=== PATIENT | male | born 1940 | race Caucasian/White ===

== ENCOUNTER 2017-08-03 18:37 | Inpatient (IN) ==
[2017-08-03] MEDS ORDERED: Acetaminophen 325 MG TABLET PO PRN (23:05)
[2017-08-03] MEDS ORDERED: Ondansetron 4 MG/2 ML VIAL IVP PRN (23:05)
[2017-08-03] MEDS ORDERED: Naloxone 0.4 MG/ML INJ IVP PRN (23:05)
[2017-08-03 23:37] LABS: INR 1.3
--- NOTE | 2017-08-03 23:47 | Event Note ---
Date of Encounter: 08/03/17 Time of Encounter: 23:00 I examined this patient and my medical decision-making was reviewed with the Resident Physician. I agree with the documented findings, disposition and treatment plan as described except to the extent set forth below. Patient is a 76-year-old male with past medical history of atrial fibrillation, COPD, bladder cancer, hyperlipidemia, hypertension and chronic back pain. He presents as a transfer from [facility] for altered mental status. Patient apparently had an episode of confusion earlier this afternoon, and was found by his in in the kitchen.in the ED patient was alert and oriented. At present patient is awake and alert. Not in any distress. Able to verbalize and follows verbal commands. Denies chest pain or shortness of breath or palpitations or headache or dizziness. He is awake and alert and able to answer questions. He is oriented to place and person but not to time. Patient does take Xarelto for A. fib.patient has no other complaints at this time. CT of the head is negative for any acute intracranial abnormality. Chest x-ray does not show any acute process. EKG shows A. fib with no other acute changes. Troponin is slightly elevated at 0.08, but patient does not have chest pain. At this time we will trend his troponin. Patient will also need MRI of brain and carotid Dopplers. Patient has been explained about his condition and plan of care. He understood and agreed. No family members at bedside. Heart rate 74, blood pressure 175/66, O2 sat 94% on room air. Heart S1-S2 positive no murmurs. Lungs bilateral good air entry no wheezes or crackles. Abdomen soft nontender no masses or guarding. Extremities all pulses, no edema. Neurological patient is awake and alert, follows commands, able to verbalize, no focal neurological deficits.
--- NOTE | 2017-08-04 03:23 | Internal Med History&Physical ---
Date of Encounter: 08/03/17 Time of Encounter: 23:30 Assessment and Plan (1) Altered mental status Current visit: No Status: Acute Acute encephalopathy - unclear etiology, patient has episodes of intermittent confusion - rule out CVA Continue Statin, Xarelto CT head - no acute intracranial abnormality Chest x-ray - no acute process Troponin - 0.08 BNP - 197 MRI brain - pending Carotid Doppler - pending Drug screen - pending Cardiac telemetry, labs in a.m., monitor closely Qualifiers: Altered mental status type: transient alteration of awareness Qualified Code(s): R40.4 - Transient alteration of awareness (2) Elevated troponin Current visit: Yes Status: Acute Elevated troponin possibly due to atrial fibrillation - rule out ACS EKG - atrial fibrillation with no acute ST-T changes Continue home dose of statin, patient is allergic to aspirin Cycle troponin, cardiac telemetry (3) Atrial fibrillation Current visit: Yes Status: Chronic Chronic atrial fibrillation, rate controlled Continue home dose of Digoxin and continue Xarelto for anticoagulation Qualifiers: Atrial fibrillation type: chronic Qualified Code(s): I48.2 - Chronic atrial fibrillation (4) Hypertension Current visit: No Status: Chronic Essential hypertension, uncontrolled, monitor Add metoprolol Qualifiers: Hypertension type: essential hypertension Qualified Code(s): I10 - Essential (primary) hypertension Internal Medicine - H&P: HPI Chief complaint: Altered mental status Admitted From: Emergency Dept Plans for Post Hospital Care: Home History of present illness: Mr. Lofton is a 76 year old male with past medical history of atrial fibrillation, bladder cancer, hyperlipidemia, and hypertension who presents to the ER with chief complaint of altered mental status. Patient had a normal day for the most part, but was found by his in the kitchen. He tried makes coffee and was spilling coffee around. He appeared to be confused and disoriented. Emergency services came and reported that he appeared to be agitated. He also appeared to have slight weakness in the metal bumper of his left hand. Upon arrival to the hospital, patient said that he "felt fine". The patient was alert and oriented and answered questions appropriately. Patient denied having any acute visual changes or headache. He denied having any chest pain, palpitations, or shortness of breath. Patient denied having any recent fall or injury. He does not have any numbness or tingling. Patient does have a history of atrial fibrillation, for which she takes her also. Patient states that he did take his morning dose. Patient had another episode where he became disoriented with nurse. She did not know why he was in the emergency department. He quickly resolved. CT scan of the head was obtained, showing no acute intracranial abnormality. It did however, show chronic microvascular ischemic changes and global cerebral atrophy. Patient denies the use of tobacco or alcohol. Past Med Surg Social Fam HX - Past Medical History Medical history: atrial fibrillation, cancer, hyperlipidemia, hypertension, other Psychiatric history: no psych history - Past Surgical History Surgical History: cancer surgery - Social History Smoking Status: Former smoker Smokeless Tobacco Status: No Alcohol use: none Drug use: none Internal Medicine - H&P: Meds Albuterol Sulfate [Ventolin Hfa] 1 puff IH PRN PRN 08/03/17 [History] Digoxin 0.125 mg PO DAILY 08/03/17 [History] Fluticasone/Salmeterol [Advair Hfa 45-21 Mcg Inhaler] 12 gm IH PRN PRN 08/03/17 [History] Loratadine [Claritin] 10 mg PO DAILY 08/03/17 [History] Lovastatin [Altoprev] 40 mg PO DAILY 08/03/17 [History] Montelukast [Singulair] 10 mg PO DAILY 08/03/17 [History] Rivaroxaban [Xarelto] 20 mg PO DAILY 08/03/17 [History] Tramadol HCl [Ultram] 50 mg PO TID 08/03/17 [History] 3 Allergy/AdvReac Type Severity Reaction Status Date / Time aspirin [ASA] Allergy Rash Verified 08/03/17 16:27 All Systems PM: A 10-system review of systems was performed and is negative for pertinent findings except as documented above in the HPI. - Constitutional Constitutional: no fatigue, no fever(s), no weakness - Cardiovascular Cardiovascular ROS IM: no chest pain, no diaphoresis, no dyspnea, no dyspnea on exertion, no lightheadedness, no orthopnea, no palpitations, no syncope - Respiratory Respiratory: no cough, no dyspnea, no hemoptysis, no dyspnea on exertion, no wheezing, no chest congestion - Gastrointestinal Gastrointestinal: no abdominal pain, no cramping, no diarrhea, no hematemesis, no nausea, no vomiting - Musculoskeletal Musculoskeletal ROS IM: no arthralgias - Neurological Neurological ROS: no confusion, no convulsions, no dizziness, no numbness, no tingling - Constitutional Vitals: Temp Pulse Resp BP Pulse Ox 98.2 F 74 16 175/66 94 08/03/17 21:23 08/03/17 21:23 08/03/17 21:23 08/03/17 21:23 08/03/17 21:23 General appearance: Present: cooperative, A&O X 2, pleasant, no acute distress, answers questions appropriately Exam: Intermittent confusion - Head Head exam: Present: atraumatic - Eye Eye exam: Present: EOMI - ENT ENT exam: Present: mucous membranes moist - Respiratory Respiratory exam: Present: CTAB. Absent: chest wall tenderness, rales, rhonchi , wheezes, tachypnea - Cardiovascular Cardiovascular exam: Present: RRR, +S1, +S2 - GI/Abdominal GI/Abdominal exam: Present: soft. Absent: distended, firm, guarding, tenderness - Extremities Exam Extremities exam: Present: radial pulses palpable and symmetrical. Absent: calf tenderness, cyanotic, pedal edema - Neurological Exam Neurological exam: Present: alert (Oriented to place and person but not to time) , no focal deficits. Absent: facial droop, speech deficit Additional comments: Follows verbal commands and able to verbalize well. No obvious focal neurological deficits Internal Med - H&P Results - Labs Labs: Cardiac Enzymes 08/03/17 Range/Units 23:25 Troponin I 0.08 H* (0-0.03) ng/mL
[2017-08-04 03:54] LABS: Bilirubin,Urine Negative (Negative); Blood,Urine Negative (Negative); Clarity,Urine Clear (Clear); Color,Urine Yellow (Yellow); Glucose,Urine (UA) Normal (Normal); Ketones,Urine Negative (Negative); Leukocyte Esterase,Urine Negative (Negative); Nitrite,Urine Negative (Negative); PH,Urine 6.5 pH Units (5.0-8.0); Protein,Urine 100 mg/dL (Neg-Trace); Specific Gravity,Urine 1.026 (1.010-1.025); Urobilinogen,Urine Normal (Normal)
[2017-08-04 03:56] LABS: Bacteria,Urine None Seen per hpf (None-Few); Hyaline Casts,Urine None Seen per lpf (None-Few); Squamous Epithelial Cell,Urine Moderate per lpf (None-Few); WBC,Urine 0-3 per hpf (0-3)
[2017-08-04 04:00] LABS: Amphetamine Screen,Urine Negative ng/mL (Cutoff=1000); Barbiturate Screen,Urine Negative ng/mL (Cutoff=200); Benzodiazepines Screen,Urine Negative ng/mL (Cutoff=200); Cannabinoid Screen,Urine Negative ng/mL (Cutoff = 50); Cocaine Screen,Urine Negative ng/mL (Cutoff= 300); Opiate Screen,Urine Negative ng/mL (Cutoff=300); Phencyclidine Screen,Urine Negative ng/mL (Cutoff=25)
[2017-08-04] MEDS: Famotidine 20 MG/2 ML VIAL IVP SCH ×2 (05:11→17:05)
[2017-08-04 06:07] LABS: Basophils # 0.1 K/mcL (0.0-0.2); Basophils % 0.5 %; Eosinophils # 0.2 K/mcL (0.0-0.6); Eosinophils % 1.4 %; Hematocrit 42.7 % (37.5-50.1); Hemoglobin 13.4 g/dL (12.9-16.9); Immature Granulocytes % 0.8 % (0-4); Immature Platelets 6.3 % (1.1-6.1); Lymphocytes % 18.6 %; Mean Corpuscular HGB Conc 31.4 g/dL (31.6-35.5); Mean Corpuscular Hemoglobin 29.5 pg (28.0-33.3); Mean Corpuscular Volume 93.8 fL (83.0-100.0); Mean Platelet Volume 11.1 fL (9.4-12.4); Monocytes % 9.3 %; Neutrophils # 7.3 K/mcL (1.6-8.9); Platelet Count 218 K/mcL (140-400); Red Blood Count 4.55 M/mcL (4.19-5.50); Red Cell Distribution Width 14.1 % (11.5-14.5); Segmented Neutrophils % 69.4 %
[2017-08-04 06:19] LABS: BUN/Creatinine Ratio 14 (6-26); Blood Urea Nitrogen 13 mg/dL (8-26); Calcium 9.1 mg/dL (8.6-10.8); Carbon Dioxide 27 mEq/L (19-29); Chloride 105 mEq/L (98-109); Chol/HDL Ratio 4.5 (0-4.9); Cholesterol 149 mg/dL (< 200); Glucose 101 mg/dL (70-99); HDL Cholesterol 33 mg/dL (40-59); LDL Cholesterol,Calculated 96 mg/dL (0-99); Osmolality,Calculated 290 (280-300); Potassium 3.9 mEq/L (3.5-4.5); Sodium 140 mEq/L (136-145); Triglycerides 99 mg/dL (< 150); eGFR For African Americans > 60 (> 60); eGFR For Non-African Americans > 60 (> 60)
[2017-08-04] MEDS ORDERED: *HR* Labetalol 20 MG/4 ML SYRINGE IVP ONE (06:30)
--- NOTE | 2017-08-04 08:28 | Event Note ---
<LilliamArthur Oneillrileyolman - Last Filed: 08/04/17 09:13> Date of Encounter: 08/04/17 Time of Encounter: 08:23 Patient seen this morning. Nurse reports at 6Am patient was answering questions and following commands and had acute change in mental status. Currently follows some commands. Otherwise, seems to have fluent aphasia, saying random unrelated comments to questions. MRI stat ordered. GCS 15. Currently etiology unclear of why patient is encephalopathic. Patient has hx of afib on xarelto. Heart: irregularly irregular Lungs: CTAB Abdomen: Soft, nontender, nondistended positive bowel sounds Neuro:alert but not oriented to self, place, time, situation. Patient able to move all extremities spontaneously. Follows some verbal commands stated above. Reflexes 2 out of 4. Extremities: Without edema. Plan: acute encephalopathy awaiting echocardiogram, carotid doppler and MRI. Started on asa, statin, thiamine. elevated troponin: troponin on upward trended. patient unable to answer if he has chest pain. EKG shows afib with no evidence of st-t wave changes. continue to monitor. continue tele afib: rate in 60s. on digoxin. will check dig level. on xarelto. continue aspirin, statin. <Garrison Flores - Last Filed: 08/04/17 18:39> Date of Encounter: 08/04/17 Agree with above plan. See progress note of this date.
[2017-08-04] MEDS ORDERED: Haloperidol Lactate 5 MG/ML VIAL IVP ONE ×2 (08:29→09:19)
[2017-08-04] MEDS ORDERED: Haloperidol Lactate 5 MG/ML VIAL ONE ×2 (08:31→08:32)
[2017-08-04] MEDS ORDERED: *HR* LORazepam 2 MG/ML VIAL IVP ONE ×2 (08:44→09:33)
[2017-08-04] MEDS ORDERED: *HR* LORazepam 2 MG/ML VIAL ONE (08:47)
[2017-08-04] MEDS: Budesonide/Formoterol 80/4.5 MDI IH SCH ×2 (09:21→22:48)
--- NOTE | 2017-08-04 13:17 | Neurology - Consult Note ---
Date of Encounter: 08/04/17 Time of Encounter: 13:11 Assessment and Plan (1) CVA (cerebral vascular accident) Current Visit: Yes Status: Acute 76 year old with known history of atrial fibrillation on Xarelto who developed acute changes in mental status, with MRI of brain showing acute punctate infarcts with a pattern consistent with proximal source of embolic stroke. patient currently sedated and agitated due to stroke and medical effects. But no focal weakness seen Await stroke work up including echocardiography, carotid artery duplex study. in terms of stroke management, he is already on Xarelto, first thing would be to confirm that he has been compliant with therapy. If he has not been compliant with Xarelto therapy then would suggest that he simply continue on Xarelto. If he has been compliant with Xarelto, then would suggest to add on aspirin 81mg daily, or as an alternative, to switch him from xarelto to a different anticoagulation or even coumadin with permission from cardiology. please continue medical and supportive care. Qualifiers: CVA mechanism: embolism Precerebral and cerebral artery: unspecified cerebral artery Qualified Code(s): I63.40 - Cerebral infarction due to embolism of unspecified cerebral artery History of Present Illness Chief complaint: confusion HPI: Mr. Lofton is a 76 year old male with PMH significant for atrial fibrillation on Xarelto, HTN, chronic back pain , asthma, obesity who developed acute changes in mental status. Patient was agitated and confused earlier this morning and was given Ativan and Haldol. Patient is currently sedated and unable to provide HPI. Per medical records, patient was found by his that he was confused in the kitchen. MRI of brain showed: 1. There are several punctate areas of restricted diffusion noted in bilateral cerebral hemispheres as well as bilateral cerebellar hemispheres which are concerning for acute embolic infarcts. Given the multivessel distribution, this likely comes from a proximal source (heart, aorta, etc). 2. Cerebral and cerebellar parenchymal volume loss with moderate chronic microvascular white matter ischemic disease noted both supra and infratentorially. Patient has history of atrial fibrillation and supposed to be taking xarelto. Unsure if the patient has been compliant with therapy Past Med Surg Social Fam HX - Past Medical History Medical history: atrial fibrillation, cancer, hyperlipidemia, hypertension, other Psychiatric history: no psych history - Past Surgical History Surgical History: cancer surgery - Social History Smoking Status: Former smoker Smokeless Tobacco Status: No Alcohol use: none Drug use: none Medications and Allergies Albuterol Sulfate [Ventolin Hfa] 1 puff IH PRN PRN 08/03/17 [History] Digoxin 0.125 mg PO DAILY 08/03/17 [History] Fluticasone/Salmeterol [Advair Hfa 45-21 Mcg Inhaler] 12 gm IH PRN PRN 08/03/17 [History] Loratadine [Claritin] 10 mg PO DAILY 08/03/17 [History] Lovastatin [Altoprev] 40 mg PO DAILY 08/03/17 [History] Montelukast [Singulair] 10 mg PO DAILY 08/03/17 [History] Rivaroxaban [Xarelto] 20 mg PO DAILY 08/03/17 [History] Tramadol HCl [Ultram] 50 mg PO TID 08/03/17 [History] 3 Allergy/AdvReac Type Severity Reaction Status Date / Time aspirin [ASA] Allergy Rash Verified 08/03/17 16:27 All Systems: A 10-system review of systems was performed and is negative for pertinent findings except as documented above in the HPI. Physical Examination - Vital Signs Vital Signs: Initial Vital Signs Temp Pulse Resp BP Pulse Ox 98.2 F 74 16 175/66 94 08/03/17 21:23 08/03/17 21:23 08/03/17 21:23 08/03/17 21:23 08/03/17 21:23 - Constitutional General appearance: uncomfortable - Neurologic Sensorimotor examination: other (unable to assess due to sedation) Detailed motor examination: grossly full strength in all extremities (Patient moves all limbs without gross weakness) Detailed sensory examination: other (Unable to assess) Posture: other (None ) Reflex and gait examination: other (Unable to assess due to sedation) Reflexes: Biceps: 1+, Triceps: 1+, Brachioradialis: 1+, Patella: 1+, Achilles: 1 + Mental Status Examination: lethargic (Patient moans and trie to get up. Eyes closed and does not follow commands. ) Cranial nerve examination: PERRL, EOMI (Unable to assess due to sedation), corneal reflexes brisk symmetrically, mastication intact, no facial asymmetry is present Results - Laboratory Findings CBC and BMP: 08/04/17 05:29 08/04/17 05:29 Abnormal lab findings: Abnormal lab results MCHC 31.4 g/dL (31.6-35.5) L 08/04/17 05:29 Immature Plt Fraction 6.3 % (1.1-6.1) H 08/04/17 05:29 PT 14.0 Seconds (9.4-12.1) H 08/03/17 23:25 Glucose 101 mg/dL (70-99) H 08/04/17 05:29 Troponin I 0.21 ng/mL (0-0.03) H* 08/04/17 10:43 B-Natriuretic Peptide 197 pg/mL (0-100) H 08/03/17 23:25 HDL Cholesterol 33 mg/dL (40-59) L 08/04/17 05:29 Ur Specific [place] 1.026 (1.010-1.025) H 08/04/17 02:04 Urine Protein 100 mg/dL (Neg-Trace) H 08/04/17 02:04 Urine Microscopic RBC 5-15 per hpf (0-3) H 08/04/17 02:04 Ur Squamous Epith Cells Moderate per lpf (None-Few) H 08/04/17 02:04 Digoxin 0.5 ng/mL (0.8-2.0) L 08/04/17 10:43 Consult Discharge Plan - Plan Referrals: Jennifer Diaz MD [Primary Care Provider] -
[2017-08-04] MEDS ORDERED: Acyclovir 750 MG in D5% in Water 250 ML IVPB SCH (14:06)
[2017-08-04] MEDS ORDERED: *HR* LORazepam 2 MG/ML VIAL IVP STA (14:06)
[2017-08-04] MEDS ORDERED: Acetaminophen 325 MG RECTAL SUPP RC PRN (14:06)
--- NOTE | 2017-08-04 14:09 | Event Note ---
<Arthur Vyas - Last Filed: 08/04/17 14:31> Date of Encounter: 08/04/17 Time of Encounter: 14:07 After talking to , patient may not have been compliant with xeralto. 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 He was complaining of neck pain. After he was given this noticed patient to be confused. Patients temp 101.5, BP 200/ 100, HR 120. NO nuchal rigidity identified. high suspicion of acute encephalopathy 2nd to meningitis. MRI does not show signs of encephalitis. WIll start patient on acyclovir Difficult to do lumbar puncture since patient is agitated, moving. Will d/c xeralto and start heparin incase we can get a LP later on. <Garrison Flores - Last Filed: 08/04/17 18:38> Date of Encounter: 08/04/17 Agree with plan as above. See progress note of this date.
[2017-08-04] MEDS ORDERED: *HR* Heparin 5,000 UNIT/ML VIAL IVP PRN ×2 (14:11)
[2017-08-04] MEDS ORDERED: *HR* Heparin 5,000 UNIT/ML VIAL IVP ONE (14:11)
[2017-08-04 14:20] LABS: Hematocrit 42.5 % (37.5-50.1); Hemoglobin 13.4 g/dL (12.9-16.9); Mean Corpuscular HGB Conc 31.5 g/dL (31.6-35.5); Mean Corpuscular Hemoglobin 29.6 pg (28.0-33.3); Mean Corpuscular Volume 93.8 fL (83.0-100.0); Mean Platelet Volume 11.7 fL (9.4-12.4); Platelet Count 228 K/mcL (140-400); Red Blood Count 4.53 M/mcL (4.19-5.50); Red Cell Distribution Width 14.1 % (11.5-14.5)
[2017-08-04 14:27] LABS: INR 1.2; Prothrombin Time 13.1 Seconds (9.4-12.1)
[2017-08-04 14:30] LABS: Activated Partial Thrombo Time 24.1 Seconds (26.0-36.0)
[2017-08-04] MEDS: Thiamine (B-1) 100 MG TABLET PO SCH (14:39)
[2017-08-04] MEDS: Acyclovir 750 MG in D5% in Water 250 ML IVPB SCH (15:00)
[2017-08-04] MEDS: Heparin 25,000 UNIT/500 ML D5W 25,000 UNIT/500 ML MLS IVC SCH (15:17)
[2017-08-04] MEDS ORDERED: *HR* Rivaroxaban 10 MG TABLET PO SCH (17:00)
[2017-08-04] MEDS: Levofloxacin 750 MG/150 ML 750 MG/150 ML BAG IVPB SCH (17:04)
[2017-08-04] MEDS: methylPREDNISolone 125 MG/2 ML VIAL IVP SCH ×2 (17:04→23:50)
[2017-08-04] MEDS ORDERED: Ipratropium/Albuterol Neb 3 ML IH PRN (17:57)
--- NOTE | 2017-08-04 18:26 | Internal Med Progress Note ---
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 On Plavix. (2) Cerebrovascular accident (CVA) due to bilateral embolism of middle cerebral arteries Current Visit: Yes Status: Acute Assessment and plan: See above (3) Acute metabolic encephalopathy Current Visit: Yes Status: Acute Assessment and plan: Most likely due to combination of fever/infection and cvas. PRN meds. Supportive care. (4) Atrial fibrillation Current Visit: Yes Status: Chronic Assessment and plan: Continue rate control meds. Qualifiers: Atrial fibrillation type: chronic Qualified Code(s): I48.2 - Chronic atrial fibrillation (5) Hypertension Current Visit: No Status: Chronic Assessment and plan: Controlled at this time. Qualifiers: Hypertension type: essential hypertension Qualified Code(s): I10 - Essential (primary) hypertension - Subjective Interval history: I examined this patient and my medical decision-making was reviewed with the Resident Physician on 08/04/17. I agree with the documented findings, disposition and treatment plan as described except to the extent set forth below. Mr Lofton has been admitted for acute encephalopathy. He has had multiple issues today and has been found to have multiple small strokes. He remains high risk due to potential for worsening neuro status. Mr Quintero started today with significant agitation and aggressiveness. He required multiple medications to calm. MRI done shows multiple bilateral CVAs. at bedside and says she reminds him to take Xarelto but does not watch him. Also stated this started shortly after he came in from [facility] yesterday. Later in afternoon he was agitated again and noted to have temp of 101.5. Lactate normal and WBC normal. Heart rate was elevated but blood pressure not low. Chest was congested. He was started on abx and transferred to [facility]. Currently he is still restless and confused though he will answer to his name. Son and daughter in law at bedside. - Constitutional Vitals: Temp Pulse Resp BP Pulse Ox 100.4 F H 104 17 144/98 94 08/04/17 15:48 08/04/17 15:48 08/04/17 15:48 08/04/17 15:48 08/04/17 15:48 General appearance: Present: A&O X 0 - Head Head exam: Present: normocephalic - Eye Eye exam: Present: conjuntiva pink - ENT ENT exam: Present: mucous membranes dry - Neck Neck exam general surgery: Absent: nuchal rigidity - Respiratory Respiratory exam: Present: prolonged expiratory phase, wheezes - Cardiovascular Cardiovascular exam: Present: irregular rhythm, tachycardia - GI/Abdominal GI/Abdominal exam: Present: soft. Absent: tenderness - Extremities Exam Extremities exam: Present: warm. Absent: tenderness - Neurological Exam Neurological exam: Present: alert, altered Internal Medicine: Result - Labs CBC & Chem 7: 08/04/17 10:43 08/04/17 05:29 Labs: Short CBC 08/04/17 08/04/17 Range/Units 05:29 10:43 WBC 10.5 10.7 (4.3-11.1) K/mcL Hgb 13.4 13.4 (12.9-16.9) g/dL Hct 42.7 42.5 (37.5-50.1) % Plt Count 218 228 (140-400) K/mcL Neutrophils # 7.3 (1.6-8.9) K/mcL BMP 08/04/17 05:29 Sodium 140 Potassium 3.9 Chloride 105 Carbon Dioxide 27 BUN 13 Creatinine 0.94 Glucose 101 H Calcium 9.1 Cardiac Enzymes 08/03/17 08/04/17 08/04/17 Range/Units 23:25 05:29 10:43 Troponin I 0.08 H* 0.12 H* 0.21 H* (0-0.03) ng/mL Urine 08/04/17 Range/Units 02:04 Urine Color Yellow (Yellow) Urine Clarity Clear (Clear) Urine pH 6.5 (5.0-8.0) pH Units Ur Specific [place] 1.026 H (1.010-1.025) Urine Protein 100 H (Neg-Trace) mg/dL Urine Glucose (UA) Normal (Normal) mg/dL - ABG Interpretation ABG results: PT/INR, D-dimer PT 13.1 Seconds (9.4-12.1) H 08/04/17 10:43 - Impressions Impressions Brain MRI 08/04/17 07:08 IMPRESSION: 1. There are several punctate areas of restricted diffusion noted in bilateral cerebral hemispheres as well as bilateral cerebellar hemispheres which are concerning for acute embolic infarcts. Given the multivessel distribution, this likely comes from a proximal source (heart, aorta, etc). 2. Cerebral and cerebellar parenchymal volume loss with moderate chronic microvascular white matter ischemic disease noted both supra and infratentorially. D/ / 08/04/2017 10:34:37 Melecio Aponte MD / Olga Patton Interpreting Provider: Melecio Aponte MD Chest X-Ray 08/04/17 14:20 IMPRESSION: 1. Cardiomegaly with increased pulmonary vascular congestion. D/ / Melecio Aponte MD / Melecio Aponte MD Interpreting Provider: Melecio Aponte MD Consult Discharge Plan - Plan Referrals: Jennifer Diaz MD [Primary Care Provider] -
[2017-08-04] MEDS: *HR* LORazepam 2 MG/ML VIAL IVP PRN ×2 (18:43→23:50)
[2017-08-04] MEDS: *HR* Metoprolol 5 MG/5 ML VIAL IVP PRN (18:48)
--- NOTE | 2017-08-04 19:20 | Electrocardiograph Report ---
[place] [id number] Test Date: 2017-08-04 Pat Name: Keenan Lofton Department: 113 Room: [facility] Gender: M [employer]: ROSA ISELA : 1940 Requested By: Josué Solares Order Number: [id number] Reading MD: Vincent Morgan MD Measurements Intervals [place] Rate: 73 P: CT: 0 QRS: 30 QRSD: 69 T: -36 QT: 366 QTc: 392 Interpretive Statements ATRIAL FIBRILLATION Electronically Signed On 08-04-2017 19:18:59 EDT by Vincent Morgan MD
[2017-08-05] MEDS: Acyclovir 750 MG in D5% in Water 250 ML IVPB SCH ×2 (00:18→06:18)
[2017-08-05] MEDS: *HR* Morphine 2 MG/ML SYRINGE IVP PRN (01:34)
[2017-08-05 04:42] LABS: Bilirubin,Urine Negative (Negative); Blood,Urine Trace (Negative); Clarity,Urine Clear (Clear); Color,Urine Yellow (Yellow); Glucose,Urine (UA) Normal (Normal); Ketones,Urine Negative (Negative); Leukocyte Esterase,Urine Negative (Negative); Nitrite,Urine Negative (Negative); PH,Urine 6.5 pH Units (5.0-8.0); Protein,Urine 100 mg/dL (Neg-Trace); Specific Gravity,Urine 1.019 (1.010-1.025); Urobilinogen,Urine Normal (Normal)
[2017-08-05 04:45] LABS: Bacteria,Urine None Seen per hpf (None-Few); Hyaline Casts,Urine None Seen per lpf (None-Few); Squamous Epithelial Cell,Urine Few per lpf (None-Few); WBC,Urine 0-3 per hpf (0-3)
[2017-08-05] MEDS: Famotidine 20 MG/2 ML VIAL IVP SCH ×2 (06:18→18:38)
[2017-08-05] MEDS: *HR* Metoprolol 5 MG/5 ML VIAL IVP PRN (08:18)
[2017-08-05] MEDS: Levofloxacin 750 MG/150 ML 750 MG/150 ML BAG IVPB SCH (08:19)
[2017-08-05] MEDS: methylPREDNISolone 125 MG/2 ML VIAL IVP SCH (08:19)
[2017-08-05] MEDS: Thiamine (B-1) 100 MG TABLET PO SCH (08:28)
[2017-08-05] MEDS: Heparin 25,000 UNIT/500 ML D5W 25,000 UNIT/500 ML MLS IVC SCH (09:40)
--- NOTE | 2017-08-05 10:05 | Neurology Progress Note ---
<Deepak Squires - Last Filed: 08/05/17 10:31> Date of Encounter: 08/05/17 Time of Encounter: 09:00 Assessment and Plan (1) CVA (cerebral vascular accident) Current Visit: Yes Status: Acute 76 year old with known history of atrial fibrillation on Xarelto who developed acute changes in mental status, with MRI of brain showing acute punctate infarcts with a pattern consistent with proximal source of embolic stroke. patient currently sedated and agitated due to stroke and medical effects. Very slight left leg weakness observed. Waiting for results of echocardiogram, initial read on chronic Dopplers shows nonstenotic plaque with regular flow velocity. Patient reportedly developed fevers overnight of 100.4 and was started on Levaquin and acyclovir. Waiting for final read on chest CT by primary team, Await stroke work up including echocardiography, carotid artery duplex study Patient reports being noncompliant with home Xarelto, though patient not fully cognizant currently Recommend continuing Xarelto and consider adding 81 mg aspirin if patient reports he has been taking Xarelto Consider alternative anticoagulation per cardiology if needed Qualifiers: CVA mechanism: embolism Precerebral and cerebral artery: unspecified cerebral artery Qualified Code(s): I63.40 - Cerebral infarction due to embolism of unspecified cerebral artery Subjective Principal diagnosis: embolic stroke Interval history: Patient not agitated this morning, he is relatively cooperative but seems to have difficulty understanding commands. He is alert and oriented 2 is unable to identify the time or time of year. He denies having any symptoms currently. He does report that he has not been taking his Xarelto regularly, but is difficult to ascertain whether he understands as questioned. Objective - Constitutional Vitals: Temp Pulse Resp BP Pulse Ox 97.5 F L 95 16 142/97 98 08/05/17 07:03 08/05/17 07:03 08/05/17 07:03 08/05/17 07:03 08/05/17 08:00 General appearance: Present: A&O X 2, pleasant - Head Head exam: Present: atraumatic, normocephalic - Expanded Head Exam Head exam expanded: Absent: Rodriguez's sign, laceration, raccoon eyes - Eye Eye exam: Present: EOMI, PERRL, conjuntiva pink, sclera anicteric - Extremities Exam Extremities exam: Present: radial pulses palpable and symmetrical. Absent: calf tenderness, pedal edema, tenderness - Neurological Exam Motor Examination: Present: other (Slightly decreased strength in the left lower extremity, 4/5) Motor examination - right side: 5/5: deltoids, biceps, triceps, biotechnician, hip flexors, tibialis Anterior, quadriceps, plantarflexion Motor examination - left side: 4/5: hip flexors, biotechnician, quadriceps, tibialis Anterior, plantarflexion, 5/5: deltoids, biceps, triceps Sensation intact: Present: other (Decreased sensation to light touch in right upper extremity) Reflex and gait examination: intact (Unable to assess gait) Reflexes: Biceps: 2+, Triceps: 2+, Brachioradialis: 2+, Patella: 2+, Achilles: 2 + Mental Status Examination: Present: awake, alert, oriented to person, oriented to place. Absent: follows commands appropriately, answers questions appropriately Cranial nerve examination: Present: PERRL, EOMI (Unable to assess due to sedation), corneal reflexes brisk symmetrically, no facial asymmetry is present , no dysarthria, hearing is intact symmetrically, flexes SCM and trapezius muscles symmetrically with full power, tongue protrudes midline Cerebellar examination: Present: performs finger to nose and heel to meyers symmetrically without ataxia Results - Laboratory Findings CBC and BMP: 08/04/17 10:43 08/04/17 05:29 Abnormal lab findings: Abnormal lab results MCHC 31.5 g/dL (31.6-35.5) L 08/04/17 10:43 Immature Plt Fraction 6.3 % (1.1-6.1) H 08/04/17 05:29 PT 13.1 Seconds (9.4-12.1) H 08/04/17 10:43 APTT 62.3 Seconds (26.0-36.0) H 08/05/17 03:02 Glucose 101 mg/dL (70-99) H 08/04/17 05:29 Troponin I 0.21 ng/mL (0-0.03) H* 08/04/17 10:43 B-Natriuretic Peptide 197 pg/mL (0-100) H 08/03/17 23:25 HDL Cholesterol 33 mg/dL (40-59) L 08/04/17 05:29 Urine Protein 100 mg/dL (Neg-Trace) H 08/05/17 04:24 Urine Blood Trace (Negative) H 08/05/17 04:24 Urine Microscopic RBC 5-15 per hpf (0-3) H 08/05/17 04:24 Digoxin 0.5 ng/mL (0.8-2.0) L 08/04/17 10:43 Consult Discharge Plan - Plan Referrals: Jennifer Diaz MD [Primary Care Provider] - <Abimael Alvarez - Last Filed: 08/05/17 12:29> Date of Encounter: 08/05/17 Time of Encounter: 12:23 Assessment and Plan (1) CVA (cerebral vascular accident) Current Visit: Yes Status: Acute I saw and examined the patient in the presence of Dr. Deepak Squires and i agree with his history taking, physical examination, assessment and plan. Patient may not be totally compliant with Xarelto at home due to his baseline dementia. Will recommend continuing xarelto as prescribed. Continue medical and supportive care. Qualifiers: CVA mechanism: embolism Precerebral and cerebral artery: unspecified cerebral artery Qualified Code(s): I63.40 - Cerebral infarction due to embolism of unspecified cerebral artery (2) Altered mental status Current Visit: No Status: Acute Apparently the patient is doing much better today and he is awake and mostly oriented now although mild disorientation still present earlier today. He reports no significant headaches throughout the course of the disease. MRI of brain showed few punctate embolic infarct but other than that there is no evidence suggesting [employer] infection or inflammation therefore with regarding the isolated fever it is unlikely [employer] in etiology therefore does not believe an LP is necessary and antiviral therapy is not needed. Agree with continuing antibiotic therapy due to the X-ray findings. Qualifiers: Altered mental status type: transient alteration of awareness Qualified Code(s): R40.4 - Transient alteration of awareness Objective - Constitutional Vitals: Temp Pulse Resp BP Pulse Ox 97.6 F 99 16 150/98 98 08/05/17 11:13 08/05/17 11:13 08/05/17 11:13 08/05/17 11:13 08/05/17 11:13 Results - Laboratory Findings CBC and BMP: 08/04/17 10:43 08/04/17 05:29 Abnormal lab findings: Abnormal lab results MCHC 31.5 g/dL (31.6-35.5) L 08/04/17 10:43 Immature Plt Fraction 6.3 % (1.1-6.1) H 08/04/17 05:29 PT 13.1 Seconds (9.4-12.1) H 08/04/17 10:43 APTT 62.3 Seconds (26.0-36.0) H 08/05/17 03:02 Glucose 101 mg/dL (70-99) H 08/04/17 05:29 Troponin I 0.21 ng/mL (0-0.03) H* 08/04/17 10:43 B-Natriuretic Peptide 197 pg/mL (0-100) H 08/03/17 23:25 HDL Cholesterol 33 mg/dL (40-59) L 08/04/17 05:29 Urine Protein 100 mg/dL (Neg-Trace) H 08/05/17 04:24 Urine Blood Trace (Negative) H 08/05/17 04:24 Urine Microscopic RBC 5-15 per hpf (0-3) H 08/05/17 04:24 Digoxin 0.5 ng/mL (0.8-2.0) L 08/04/17 10:43
[2017-08-05] MEDS: Budesonide/Formoterol 80/4.5 MDI IH SCH ×3 (11:11→20:12)
--- NOTE | 2017-08-05 12:48 | Carotid Imaging Report ---
Carotid Duplex Patient Name:Keenan Lofton Order Number:[id number] Procedure Date:08/04/2017 Date:1940Age:76 yrs Gender:Male Rt.BP:160 / 89 mmHgHeart Rate: Location:[facility] Room #: 43 Blocklayer:Dorene Storm, YARY, RVT Referring MD:Josué Solares MD Reading MD:Rambo Verde MD , FACS Primary Indications:Altered Mental Status Risk Factors Yes/No Hypertension Yes Hypercholesterolemia Yes Smoker Previous Yes Impressions: Findings: Bilateral carotid systems have nonstenotic plaque. Findings Carotid Duplex: Right: The right proximal common carotid artery has a PSV of 79 cm/s and a EDV of 1 cm/s. The right mid common carotid artery has a PSV of 72 cm/s and a EDV of 11 cm/s. The right distal common carotid artery has a PSV of 81 cm/s and a EDV of 11 cm/s. The right bifurcation has a PSV of 71 cm/s and a EDV of 9 cm/s. The right proximal internal carotid artery has a PSV of 49 cm/s and a EDV of 14 cm/s. The right mid internal carotid artery has a PSV of 66 cm/s and a EDV of 14 cm/s. The right distal internal carotid artery has a PSV of 62 cm/s and a EDV of 15 cm/s. The right eca has a PSV of 164 cm/s. The right vertebral artery has a PSV of 32 cm/s and a EDV of 8 cm/s. Left: The left proximal common carotid artery has a PSV of 67 cm/s and a EDV of 8 cm/s. The left mid common carotid artery has a PSV of 76 cm/s and a EDV of 8 cm/s. The left distal common carotid artery has a PSV of 69 cm/s and a EDV of 12 cm/s. The left bifurcation has a PSV of 82 cm/s and a EDV of 8 cm/s. The left proximal internal carotid artery has a PSV of 80 cm/s and a EDV of 8 cm/s. The left mid internal carotid artery has a PSV of 112 cm/s and a EDV of 22 cm/s. The left distal internal carotid artery has a PSV of 80 cm/s and a EDV of 14 cm/s. The left eca has a PSV of 230 cm/s and a EDV of 19 cm/s. The left vertebral artery has a PSV of 60 cm/s and a EDV of 10 cm/s. Prior Study: No prior study available for comparison. Carotid Results Right PSV EDV Assessment Proximal CCA 79 1 Mid CCA 72 11 Non Stenotic Plaque Distal CCA 81 11 Non Stenotic Plaque Bifurcation 71 9 Non Stenotic Plaque Proximal ICA 49 14 Mid ICA 66 14 Distal ICA 62 15 ECA 164 0 Vertebral Artery 32 8 Antegrade Flow Left PSV EDV Assessment Proximal CCA 67 8 Mid CCA 76 8 Distal CCA 69 12 Bifurcation 82 8 Non Stenotic Plaque Proximal ICA 80 8 Non Stenotic Plaque Mid ICA 112 22 Distal ICA 80 14 ECA 230 19 Vertebral Artery 60 10 Antegrade Flow Ratio's Right ICA/CCA Ratio: 0.92 ICA/CCA Values: 66/72 Left ICA/CCA Ratio: 1.47 ICA/CCA Values: 112/76 Updated by Rambo Verde MD, FACS on 08/05/2017 12:40:50 PM Rambo Verde MD electronically signed on 08/05/2017 12:41:04 PM with status of Final
--- NOTE | 2017-08-05 14:46 | Internal Med Progress Note ---
<Arthur Vyas - Last Filed: 08/05/17 14:53> Date of Encounter: 08/05/17 Time of Encounter: 14:44 - Assessment and plan (1) Acute encephalopathy Current Visit: Yes Status: Acute Assessment and plan: 2nd to embolic stroke Initially patient was aggressive, agitated, alert but not oriented to self, place or time. History of noncompliance with xaralto will start patient on xarelto and plavix (allergic to aspirin) yesterday patient had fever with the symptoms of acute enchephalopathy: he was started on acyclovir. 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 Discontinue acyclovir. (2) CVA (cerebral vascular accident) Current Visit: Yes Status: Acute Assessment and plan: MRI shows muultiple areas of acute infarcts dilma from embolic stroke patient will be started on plavix as they cannot take aspirin. continue statin reassess mental status tomorrow. Qualifiers: CVA mechanism: embolism Precerebral and cerebral artery: unspecified cerebral artery Qualified Code(s): I63.40 - Cerebral infarction due to embolism of unspecified cerebral artery (3) Atrial fibrillation Current Visit: Yes Status: Chronic Assessment and plan: restart home metoprol and xarelto controlled. Qualifiers: Atrial fibrillation type: chronic Qualified Code(s): I48.2 - Chronic atrial fibrillation (4) Elevated troponin Current Visit: Yes Status: Acute Assessment and plan: 2nd to stroke EKG afib with no ischemic changes patient denies chest pain - Subjective Interval history: Patient alert to self, place. He is not aggressive or agitated. - Constitutional Vitals: Temp Pulse Resp BP Pulse Ox 97.6 F 99 16 150/98 98 08/05/17 11:13 08/05/17 11:13 08/05/17 11:13 08/05/17 11:13 08/05/17 11:13 General appearance: Present: A&O X 0, A&O X 2 - Respiratory Respiratory exam: Present: wheezes (Wheezing anterior left chest). Absent: accessory muscle use, rales, rhonchi - GI/Abdominal GI/Abdominal exam: Present: normal bowel sounds, soft, no peritoneal signs. Absent: distended, tenderness - Extremities Exam Extremities exam: Present: warm, radial pulses palpable and symmetrical. Absent : calf tenderness, cyanotic, pedal edema - Neurological Exam Neurological exam: Present: alert, CN II-XII intact, no focal deficits. Absent : oriented X3 (Oriented to self and place), pronater drift, facial droop, speech deficit Internal Medicine: Result - Labs CBC & Chem 7: 08/04/17 10:43 08/04/17 05:29 Labs: Urine 08/05/17 Range/Units 04:24 Urine Color Yellow (Yellow) Urine Clarity Clear (Clear) Urine pH 6.5 (5.0-8.0) pH Units Ur Specific [place] 1.019 (1.010-1.025) Urine Protein 100 H (Neg-Trace) mg/dL Urine Glucose (UA) Normal (Normal) mg/dL - ABG Interpretation ABG results: PT/INR, D-dimer PT 13.1 Seconds (9.4-12.1) H 08/04/17 10:43 - Impressions Impressions Chest X-Ray 08/04/17 14:20 IMPRESSION: 1. Cardiomegaly with increased pulmonary vascular congestion. D/ / Melecio Aponte MD / Melecio Aponte MD Interpreting Provider: Melecio Aponte MD Chest CT 08/05/17 10:00 IMPRESSION: 1. Curvilinear and consolidative opacities within the bilateral lower lobes, right greater than left, which could represent either atelectasis, aspiration, or pneumonia. Clinical correlation is advised. 2. Mild scattered ground-glass opacity throughout both lungs likely reflects either atelectasis or possibly asymmetric edema. 3. Mild cardiomegaly. D/ / 08/05/2017 10:56:32 Cedric Logan MD / [facility] Interpreting Provider: Cedric Logan MD Consult Discharge Plan - Plan Referrals: Jennifer Diaz MD [Primary Care Provider] - <Garrison Flores - Last Filed: 08/05/17 18:45> Date of Encounter: 08/05/17 - Assessment and plan (1) Acute metabolic encephalopathy Current Visit: Yes Status: Acute (2) Cerebrovascular accident (CVA) due to bilateral embolism of cerebellar arteries Current Visit: Yes Status: Acute (3) Cerebrovascular accident (CVA) due to bilateral embolism of middle cerebral arteries Current Visit: Yes Status: Acute (4) Atrial fibrillation Current Visit: Yes Status: Chronic Qualifiers: Atrial fibrillation type: chronic Qualified Code(s): I48.2 - Chronic atrial fibrillation (5) Hypertension Current Visit: No Status: Chronic Qualifiers: Hypertension type: essential hypertension Qualified Code(s): I10 - Essential (primary) hypertension (6) Pneumonia Current Visit: Yes Status: Suspected Qualifiers: Pneumonia type: due to other aerobic Gram-negative bacteria Laterality: bilateral Lung location: lower lobe of lung Qualified Code(s): J15.6 - Pneumonia due to other Gram-negative bacteria - Constitutional Vitals: Temp Pulse Resp BP Pulse Ox 97.6 F 99 16 150/98 98 08/05/17 11:13 08/05/17 11:13 08/05/17 11:13 08/05/17 11:13 08/05/17 11:13 Internal Medicine: Result - Labs CBC & Chem 7: 08/04/17 10:43 08/04/17 05:29 Labs: Urine 08/05/17 Range/Units 04:24 Urine Color Yellow (Yellow) Urine Clarity Clear (Clear) Urine pH 6.5 (5.0-8.0) pH Units Ur Specific [place] 1.019 (1.010-1.025) Urine Protein 100 H (Neg-Trace) mg/dL Urine Glucose (UA) Normal (Normal) mg/dL - ABG Interpretation ABG results: PT/INR, D-dimer PT 13.1 Seconds (9.4-12.1) H 08/04/17 10:43 - Impressions Impressions Chest CT 08/05/17 10:00 IMPRESSION: 1. Curvilinear and consolidative opacities within the bilateral lower lobes, right greater than left, which could represent either atelectasis, aspiration, or pneumonia. Clinical correlation is advised. 2. Mild scattered ground-glass opacity throughout both lungs likely reflects either atelectasis or possibly asymmetric edema. 3. Mild cardiomegaly. D/ / 08/05/2017 10:56:32 Cedric Logan MD / [email or web address] Interpreting Provider: Cedric Logan MD - Attending Attestation I examined this patient and my medical decision-making was reviewed with the Resident Physician on 08/05/17. I agree with the documented findings, disposition and treatment plan as described except to the extent set forth below. Mr Quintero is currently admitted for acute encephalopathy due to bilateral CVAs and presumed infection with pneumonia. He remains high risk due to potential for worsening infectious and neuro status. Mr Quintero is more oriented today. He has been afebrile. Vitals stable. Some cough noted. No GI issues. Exam Alert. Some confusion but better than yesterday Mucus membranes dry Heart irreg Lungs with rhonchi Abd soft No edema I/P 1. Acute encephalopathy 2. Probable pneumonia 3. Bilateral CVA Further diagnoses and plan as above.
--- NOTE | 2017-08-05 17:22 | Electrocardiograph Report ---
[address] [place] [address] Test Date: 2017-08-04 Pat Name: Keenan Lofton Department: 113 Room: [facility] Gender: M Supervisor [employer]: : 1940 Requested By: Garrison Flores Order Number: [id number] Reading MD: Antonietta Bryant Measurements Intervals [place] Rate: 93 P: [place]: 0 QRS: 5 QRSD: 72 T: -15 QT: 360 QTc: 411 Interpretive Statements ATRIAL FIBRILLATION PROBABLE INFERIOR MYOCARDIAL INFARCTION, PROBABLY OLD Electronically Signed On 08-05-2017 17:20:41 EDT by Antonietta Bryant
[2017-08-05] MEDS: *HR* Rivaroxaban 10 MG TABLET PO SCH (18:38)
[2017-08-05 19:27] LABS: Enterococcus by PCR Not Detected (Not Detect); Staphylococcus aureus by PCR Not Detected (Not Detect); Streptococcus agalactiae(B)PCR Not Detected (Not Detect); Streptococcus by PCR Not Detected (Not Detect); Streptococcus pneumoniae PCR Not Detected (Not Detect); blaKPC Carbapenem-Resist Gene Not Detected (Not Detect); mecA Methicillin-Resist Gene Not Detected (Not Detect); vanA/B Vancomycin-Resist Genes Not Detected (Not Detect)
[2017-08-05 19:28] LABS: Acinetobacter baumannii by PCR Not Detected (Not Detect); Candida albicans by PCR Not Detected (Not Detect); Candida glabrata by PCR Not Detected (Not Detect); Candida krusei by PCR Not Detected (Not Detect); Candida parapsilosis by PCR Not Detected (Not Detect); Candida tropicalis by PCR Not Detected (Not Detect); Escherichia coli by PCR Not Detected (Not Detect); Klebsiella oxytoca by PCR Not Detected (Not Detect); Klebsiella pneumoniae by PCR Not Detected (Not Detect); Pseudomonas aeruginosa by PCR Not Detected (Not Detect); Serratia marcescens by PCR Not Detected (Not Detect); Streptococcus pyogenes (A) PCR Not Detected (Not Detect)
[2017-08-05] MEDS: *HR* LORazepam 2 MG/ML VIAL IVP PRN ×2 (19:33→23:38)
[2017-08-05] MEDS ORDERED: Vancomycin 1,000 MG in D5% in Water 250 ML IVPB ONE (19:54)
[2017-08-05] MEDS ORDERED: Ziprasidone injection 20 MG/ML VIAL IM ONE (20:44)
[2017-08-06] MEDS: *HR* Morphine 2 MG/ML SYRINGE IVP PRN (00:48)
[2017-08-06] MEDS: Famotidine 20 MG/2 ML VIAL IVP SCH (04:50)
[2017-08-06 05:06] LABS: Basophils % 0.1 %; Hematocrit 42.3 % (37.5-50.1); Hemoglobin 13.7 g/dL (12.9-16.9); Immature Granulocytes % 1.1 % (0-4); Lymphocytes # 1.5 K/mcL (0.6-4.6); Lymphocytes % 6.4 %; Mean Corpuscular HGB Conc 32.4 g/dL (31.6-35.5); Mean Corpuscular Hemoglobin 29.7 pg (28.0-33.3); Mean Corpuscular Volume 91.8 fL (83.0-100.0); Mean Platelet Volume 10.6 fL (9.4-12.4); Monocytes % 6.8 %; Neutrophils # 19.4 K/mcL (1.6-8.9); Platelet Count 230 K/mcL (140-400); Red Blood Count 4.61 M/mcL (4.19-5.50); Red Cell Distribution Width 14.1 % (11.5-14.5); Segmented Neutrophils % 85.6 %
[2017-08-06 05:09] LABS: Monocytes # 1.5 K/mcL (0.0-1.3)
[2017-08-06 05:24] LABS: BUN/Creatinine Ratio 23 (6-26); Blood Urea Nitrogen 23 mg/dL (8-26); Calcium 9.2 mg/dL (8.6-10.8); Carbon Dioxide 23 mEq/L (19-29); Chloride 106 mEq/L (98-109); Glucose 135 mg/dL (70-99); Osmolality,Calculated 292 (280-300); Potassium 4.2 mEq/L (3.5-4.5); Sodium 138 mEq/L (136-145); eGFR For African Americans > 60 (> 60); eGFR For Non-African Americans > 60 (> 60)
[2017-08-06] MEDS ORDERED: *HR* Digoxin 0.125 MG TABLET PO SCH (09:00)
[2017-08-06] MEDS: Budesonide/Formoterol 80/4.5 MDI IH SCH ×2 (09:37→21:40)
[2017-08-06] MEDS: Levofloxacin 750 MG/150 ML 750 MG/150 ML BAG IVPB SCH (10:28)
[2017-08-06] MEDS: Metoprolol XL (24 HR) Succ 50 MG TAB.ER.24H PO SCH (10:29)
[2017-08-06] MEDS: Thiamine (B-1) 100 MG TABLET PO SCH (10:30)
[2017-08-06] MEDS: predniSONE 20 MG TABLET PO SCH (10:47)
[2017-08-06] MEDS ORDERED: WATER IVPB SCH (12:00)
[2017-08-06] MEDS ORDERED: D5 IVPB SCH (12:00)
[2017-08-06] MEDS ORDERED: NAFCILLIN IVPB SCH (12:00)
[2017-08-06] MEDS ORDERED: *HR* OxyCODONE/APAP 5/325 TABLET PO PRN (14:54)
--- NOTE | 2017-08-06 14:59 | Internal Med Progress Note ---
<Arthur Vyas - Last Filed: 08/06/17 15:06> Date of Encounter: 08/06/17 Time of Encounter: 14:55 - Assessment and plan (1) Acute encephalopathy Current Visit: Yes Status: Acute Assessment and plan: 2nd to embolic stroke Initially patient was aggressive, agitated, alert but not oriented to self, place or time. History of noncompliance with xaralto continue xarelto and plavix (allergic to aspirin) patient alert and orient to self only melatonin at night (2) CVA (cerebral vascular accident) Current Visit: Yes Status: Acute Assessment and plan: MRI shows muultiple areas of acute infarcts likley from embolic stroke patient will be started on plavix as they cannot take aspirin. continue statin patient alert and oriented to self only Qualifiers: CVA mechanism: embolism Precerebral and cerebral artery: unspecified cerebral artery Qualified Code(s): I63.40 - Cerebral infarction due to embolism of unspecified cerebral artery (3) Atrial fibrillation Current Visit: Yes Status: Chronic Assessment and plan: restart home metoprol and xarelto controlled. decreased digoxin dose due to bradycardia Qualifiers: Atrial fibrillation type: chronic Qualified Code(s): I48.2 - Chronic atrial fibrillation (4) Elevated troponin Current Visit: Yes Status: Acute Assessment and plan: 2nd to stroke EKG afib with no ischemic changes patient denies chest pain Hemodynamically stable. (5) Pneumonia Current Visit: Yes Status: Acute Assessment and plan: Likely secondary to aspiration pneumonia Not requiring O2 supplementation Left lower lobe crackles, rhonchi, diminished breath sounds Continue Levaquin. Qualifiers: Pneumonia type: due to unspecified organism Laterality: left Lung location: lower lobe of lung Qualified Code(s): J18.1 - Lobar pneumonia, unspecified organism (6) Goals of care, counseling/discussion Current Visit: Yes Status: Acute Assessment and plan: Patient will be discharged to rehabilitation center. social media marketing specialist consulted. - Subjective Interval history: Patient had episodes of agitation at night. He was given geodon by night team and was asleep afterwards. In the morning he was calm, alert to self but not oriented to time, place, situation. Talking to family, they would be comfortable if he goes to SNF for further care. His mental status is to the point where he will need 24/7 care until his mental status improves. - Constitutional Vitals: Temp Pulse Resp BP Pulse Ox 97.7 F 69 24 143/96 95 08/06/17 11:27 08/06/17 11:27 08/06/17 11:27 08/06/17 11:27 08/06/17 11:27 Exam: ALERT AND oriented to self but not to time place or siutaiton - Respiratory Respiratory exam: Present: decreased breath sounds, rales (LLL), rhonchi (LLL) - Cardiovascular Cardiovascular exam: Present: irregular rhythm. Absent: diastolic murmur, gallop, rubs, systolic murmur - GI/Abdominal GI/Abdominal exam: Present: normal bowel sounds, soft, no peritoneal signs. Absent: distended, tenderness - Neurological Exam Neurological exam: Present: alert, CN II-XII intact, no focal deficits. Absent : oriented X3 (to self only), pronater drift, facial droop, speech deficit Internal Medicine: Result - Labs CBC & Chem 7: 08/06/17 04:18 08/06/17 04:18 Labs: Short CBC 08/06/17 Range/Units 04:18 WBC 22.6 H D (4.3-11.1) K/mcL Hgb 13.7 (12.9-16.9) g/dL Hct 42.3 (37.5-50.1) % Plt Count 230 (140-400) K/mcL Neutrophils # 19.4 H (1.6-8.9) K/mcL BMP 08/06/17 04:18 Sodium 138 Potassium 4.2 Chloride 106 Carbon Dioxide 23 BUN 23 D Creatinine 0.99 Glucose 135 H Calcium 9.2 - ABG Interpretation ABG results: PT/INR, D-dimer PT 13.1 Seconds (9.4-12.1) H 08/04/17 10:43 - Impressions Impressions Chest CT 08/05/17 10:00 IMPRESSION: 1. Curvilinear and consolidative opacities within the bilateral lower lobes, right greater than left, which could represent either atelectasis, aspiration, or pneumonia. Clinical correlation is advised. 2. Mild scattered ground-glass opacity throughout both lungs likely reflects either atelectasis or possibly asymmetric edema. 3. Mild cardiomegaly. D/ / 08/05/2017 10:56:32 Cedric Logan MD / [facility] Interpreting Provider: Cedric Logan MD Echocardiogram 08/05/17 10:55 Impressions: Normal LV systolic function, LVEF 60-65%. Moderate concentric left ventricular hypertrophy. Indeterminate diastolic function due to atrial fibrillation. Normal right ventricular size and function. Severely dilated left atrium. No significant valvular dysfunction. No evidence of pulmonary hypertension. Left Ventricular Wall Motion: Rest Echo Findings All wall segments showed normal motion. Findings: Study Quality * Suboptimal echo windows. ECG Findings * Atrial fibrillation. Left Ventricle * Normal LV systolic function, LVEF 60-65%. * Normal LV chamber size. * Moderate concentric left ventricular hypertrophy. * Indeterminate diastolic function due to atrial fibrillation. Right Ventricle * Normal right ventricular size and function. Left Atrium * Severely dilated left atrium. Right Atrium * Normal right atrial size. Aorta * Normally sized aortic root. Pericardium * There is no pericardial effusion present. IVC * The IVC is not dilated. Aortic Valve * Trileaflet aortic valve. * Moderately sclerotic aortic valve leaflets. * No aortic stenosis. * No aortic regurgitation. Mitral Valve * Moderate mitral annular calcification * No mitral stenosis. * Trace mitral regurgitation. Tricuspid Valve * Normal tricuspid valve structure. * No tricuspid stenosis. * Trace tricuspid regurgitation. * No evidence of pulmonary hypertension. Pulmonic Valve * Pulmonic valve not well visualized. * No pulmonic stenosis. * No pulmonic regurgitation. 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 Current Visit: Yes Status: Acute (3) Cerebrovascular accident (CVA) due to bilateral embolism of middle cerebral arteries Current Visit: Yes Status: Acute (4) Atrial fibrillation Current Visit: Yes Status: Chronic Qualifiers: Atrial fibrillation type: chronic Qualified Code(s): I48.2 - Chronic atrial fibrillation (5) Hypertension Current Visit: No Status: Chronic Qualifiers: Hypertension type: essential hypertension Qualified Code(s): I10 - Essential (primary) hypertension (6) Pneumonia Current Visit: Yes Status: Suspected Qualifiers: Pneumonia type: due to Pneumococcus Laterality: left Lung location: lower lobe of lung Qualified Code(s): J13 - Pneumonia due to Streptococcus pneumoniae - Constitutional Vitals: Temp Pulse Resp BP Pulse Ox 97.7 F 82 12 137/84 97 08/06/17 15:26 08/06/17 15:26 08/06/17 15:26 08/06/17 15:26 08/06/17 15:26 Internal Medicine: Result - Labs CBC & Chem 7: 08/06/17 04:18 08/06/17 04:18 Labs: Short CBC 08/06/17 Range/Units 04:18 WBC 22.6 H D (4.3-11.1) K/mcL Hgb 13.7 (12.9-16.9) g/dL Hct 42.3 (37.5-50.1) % Plt Count 230 (140-400) K/mcL Neutrophils # 19.4 H (1.6-8.9) K/mcL BMP 08/06/17 04:18 Sodium 138 Potassium 4.2 Chloride 106 Carbon Dioxide 23 BUN 23 D Creatinine 0.99 Glucose 135 H Calcium 9.2 - ABG Interpretation ABG results: PT/INR, D-dimer PT 13.1 Seconds (9.4-12.1) H 08/04/17 10:43 - Impressions Impressions Chest CT 08/05/17 10:00 IMPRESSION: 1. Curvilinear and consolidative opacities within the bilateral lower lobes, right greater than left, which could represent either atelectasis, aspiration, or pneumonia. Clinical correlation is advised. 2. Mild scattered ground-glass opacity throughout both lungs likely reflects either atelectasis or possibly asymmetric edema. 3. Mild cardiomegaly. D/ / 08/05/2017 10:56:32 Cedric Logan MD / [facility] Interpreting Provider: Cedric Logan MD Echocardiogram 08/05/17 10:55 Impressions: Normal LV systolic function, LVEF 60-65%. Moderate concentric left ventricular hypertrophy. Indeterminate diastolic function due to atrial fibrillation. Normal right ventricular size and function. Severely dilated left atrium. No significant valvular dysfunction. No evidence of pulmonary hypertension. Left Ventricular Wall Motion: Rest Echo Findings All wall segments showed normal motion. Findings: Study Quality * Suboptimal echo windows. ECG Findings * Atrial fibrillation. Left Ventricle * Normal LV systolic function, LVEF 60-65%. * Normal LV chamber size. * Moderate concentric left ventricular hypertrophy. * Indeterminate diastolic function due to atrial fibrillation. Right Ventricle * Normal right ventricular size and function. Left Atrium * Severely dilated left atrium. Right Atrium * Normal right atrial size. Aorta * Normally sized aortic root. Pericardium * There is no pericardial effusion present. IVC * The IVC is not dilated. Aortic Valve * Trileaflet aortic valve. * Moderately sclerotic aortic valve leaflets. * No aortic stenosis. * No aortic regurgitation. Mitral Valve * Moderate mitral annular calcification * No mitral stenosis. * Trace mitral regurgitation. Tricuspid Valve * Normal tricuspid valve structure. * No tricuspid stenosis. * Trace tricuspid regurgitation. * No evidence of pulmonary hypertension. Pulmonic Valve * Pulmonic valve not well visualized. * No pulmonic stenosis. * No pulmonic regurgitation. - Attending Attestation I examined this patient and my medical decision-making was reviewed with the Resident Physician on 08/06/17. I agree with the documented findings, disposition and treatment plan as described except to the extent set forth below. Mr Lofton is currently admitted for acute CVAs and probable pneumonia. He remains moderate to high risk due to potential for worsening neuro status. Mr. Lofton is doing OK. He is more oriented today. Still restless and agitated at times. Was able to ambulate in the [place]arcia today. Exam Alert Comfortable now Mucus membranes dry Heart irreg, pascual Lungs clear now Abd soft No edema I/P 1. Acute bilateral CVA 2. Probable pneumonia Further diagnoses and plan as above
[2017-08-06] MEDS: *HR* Rivaroxaban 10 MG TABLET PO SCH (17:00)
--- NOTE | 2017-08-06 17:51 | Neurology Progress Note ---
Date of Encounter: 08/06/17 Time of Encounter: 17:48 Assessment and Plan (1) CVA (cerebral vascular accident) Current Visit: Yes Status: Acute Embolic events secondary to history of atrial fibrillation with possible noncompliance. Agree with combination of plavix and Xarelto for more thorough coverage. No focal neurological deficit. Expect no significant neurological consequences from the stroke since since the sizes of the stroke are very small. Qualifiers: CVA mechanism: embolism Precerebral and cerebral artery: unspecified cerebral artery Qualified Code(s): I63.40 - Cerebral infarction due to embolism of unspecified cerebral artery (2) Altered mental status Current Visit: No Status: Acute Improving and now no longer agitated and oriented to time, place and person. Expect his mental function to recover back to baseline. Follow up with PCP and he may have mild underlying cognitive impairment. Outpatient neurology follow up may be beneficial if desired. Please continue medical and supportive care. Will sign off now and please call if any questions Qualifiers: Altered mental status type: transient alteration of awareness Qualified Code(s): R40.4 - Transient alteration of awareness Subjective Principal diagnosis: embolic stroke Interval history: patient seen and examined. Patient is doing well in terms of his mental status, he is calmer and pleasant. Oriented to time and place now. No focal weakness. His memory function has been slowly improving. Talked with his today, who relates that he does have some anger issues at home. The memory confusion were noticeable in the last few few weeks prior to this admission. No fever and no headaches. sitting comfortably in chair. says that the patient may not actually take Xarelto but she usually ask him to take his medication. Now on Xarelto and Plavix Objective - Constitutional Vitals: Temp Pulse Resp BP Pulse Ox 97.7 F 82 12 137/84 97 08/06/17 15:26 08/06/17 15:26 08/06/17 15:26 08/06/17 15:26 08/06/17 15:26 General appearance: Present: A&O X 2, pleasant - Neurological Exam Sensorimotor examination: Present: other (Grossly intact) Motor Examination: Present: grossly full strength in all extremities Motor examination - right side: 5/5: deltoids, biceps, triceps, wrist flexion, wrist extension, laborer golf course, hip flexors, tibialis Anterior, quadriceps, toe extension (EHL), plantarflexion Motor examination - left side: 5/5: deltoids, biceps, triceps, wrist flexion, wrist extension, hip flexors, laborer golf course, quadriceps, tibialis Anterior, toe extension (EHL), plantarflexion Sensation intact: Present: other (Grossly intact) Posture: Present: other (None) Reflex and gait examination: intact (Unable to assess gait) Reflexes: Biceps: 2+, Triceps: 2+, Brachioradialis: 2+, Patella: 2+, Achilles: 2 + Mental Status Examination: Present: awake, alert, oriented to person, oriented to place, oriented to time. Absent: follows commands appropriately, answers questions appropriately Cranial nerve examination: Present: PERRL, EOMI (intact), visual ward intact, corneal reflexes brisk symmetrically (Normal), sensory to face intact, mastication intact, no facial asymmetry is present, no dysarthria, hearing is intact symmetrically, soft palate elevates bilaterally upon phonation, gag reflex intact, flexes SCM and trapezius muscles symmetrically with full power, tongue protrudes midline Cerebellar examination: Present: performs finger to nose and heel to meyers symmetrically without ataxia Results - Laboratory Findings CBC and BMP: 08/06/17 04:18 08/06/17 04:18 Abnormal lab findings: Abnormal lab results WBC 22.6 K/mcL (4.3-11.1) H D 08/06/17 04:18 Neutrophils # 19.4 K/mcL (1.6-8.9) H 08/06/17 04:18 Monocytes # 1.5 K/mcL (0.0-1.3) H 08/06/17 04:18 Immature Plt Fraction 6.3 % (1.1-6.1) H 08/04/17 05:29 PT 13.1 Seconds (9.4-12.1) H 08/04/17 10:43 Glucose 135 mg/dL (70-99) H 08/06/17 04:18 Troponin I 0.21 ng/mL (0-0.03) H* 08/04/17 10:43 B-Natriuretic Peptide 197 pg/mL (0-100) H 08/03/17 23:25 HDL Cholesterol 33 mg/dL (40-59) L 08/04/17 05:29 Urine Protein 100 mg/dL (Neg-Trace) H 08/05/17 04:24 Urine Blood Trace (Negative) H 08/05/17 04:24 Urine Microscopic RBC 5-15 per hpf (0-3) H 08/05/17 04:24 Digoxin 0.5 ng/mL (0.8-2.0) L 08/04/17 10:43 Staphylococcus sp PCR DETECTED (Not Detect) A 08/04/17 13:58 Consult Discharge Plan - Plan Referrals: Jennifer Diaz MD [Primary Care Provider] -
[2017-08-06] MEDS: Melatonin 3 MG TABLET PO SCH (20:17)
[2017-08-07 04:15] LABS: Basophils # 0.1 K/mcL (0.0-0.2); Basophils % 0.3 %; Eosinophils % 0.1 %; Hematocrit 45.7 % (37.5-50.1); Immature Granulocytes % 1.4 % (0-4); Lymphocytes % 11.5 %; Mean Corpuscular HGB Conc 32.8 g/dL (31.6-35.5); Mean Corpuscular Hemoglobin 30.2 pg (28.0-33.3); Mean Platelet Volume 10.8 fL (9.4-12.4); Monocytes % 5.8 %; Neutrophils # 14.2 K/mcL (1.6-8.9); Platelet Count 255 K/mcL (140-400); Red Blood Count 4.97 M/mcL (4.19-5.50); Red Cell Distribution Width 14.4 % (11.5-14.5); Segmented Neutrophils % 80.9 %
[2017-08-07] MEDS: Budesonide/Formoterol 80/4.5 MDI IH SCH ×2 (08:15→20:23)
--- NOTE | 2017-08-07 08:15 | Discharge Summary ---
<Arthur Vyas - Last Filed: 08/07/17 08:10> Date of Encounter: 08/07/17 Time of Encounter: 08:10 - Discharge Diagnosis (1) Acute encephalopathy Priority: Primary Status: Acute (2) CVA (cerebral vascular accident) Priority: Secondary Status: Acute Qualifiers: CVA mechanism: embolism Precerebral and cerebral artery: unspecified cerebral artery Qualified Code(s): I63.40 - Cerebral infarction due to embolism of unspecified cerebral artery (3) Atrial fibrillation Priority: Secondary Status: Chronic Qualifiers: Atrial fibrillation type: chronic Qualified Code(s): I48.2 - Chronic atrial fibrillation (4) Elevated troponin Priority: Secondary Status: Acute (5) Pneumonia Priority: Secondary Status: Suspected Qualifiers: Pneumonia type: due to Pneumococcus Laterality: left Lung location: lower lobe of lung Qualified Code(s): J13 - Pneumonia due to Streptococcus pneumoniae (6) Goals of care, counseling/discussion Priority: Secondary Status: Acute - Discharge Medications Prescriptions: Levofloxacin [Levaquin] 500 mg PO DAILY #2 tablet predniSONE [PredniSONE] 40 mg PO DAILY #1 tablet Home Medications: Albuterol Sulfate [Ventolin Hfa] 1 puff IH PRN PRN 08/03/17 [History] Fluticasone/Salmeterol [Advair Hfa 45-21 Mcg Inhaler] 12 gm IH PRN PRN 08/03/17 [History] Loratadine [Claritin] 10 mg PO DAILY 08/03/17 [History] Lovastatin [Altoprev] 40 mg PO DAILY 08/03/17 [History] Montelukast [Singulair] 10 mg PO DAILY 08/03/17 [History] Metoprolol Succinate 100 mg PO DAILY 08/05/17 [History] Clopidogrel [Plavix] 75 mg PO DAILY tablet 08/07/17 [Rx] Digoxin [Lanoxin] 0.0625 mg PO DAILY tablet 08/07/17 [Rx] Ipratropium/Albuterol Neb [Duoneb] 3 ml IH [id number] PRN #0 inhsol 08/07/17 [Rx] Levofloxacin [Levaquin] 500 mg PO DAILY #2 tablet 08/07/17 [Rx] Melatonin 9 mg PO HS tablet 08/07/17 [Rx] Rivaroxaban [Xarelto] 20 mg PO 1700 tablet 10/04/17 [Rx] predniSONE [PredniSONE] 40 mg PO DAILY #1 tablet 08/07/17 [Rx] Allergies/Adverse Reactions: 3 Allergy/AdvReac Type Severity Reaction Status Date / Time aspirin [ASA] Allergy Rash Verified 08/05/17 10:34 Procedures/tests Complete & Pending: Procedures Performed prior 72 hours Category Date Time Status CT chest wo con [CT] Routine Cat Scan 08/05/17 10:00 Completed ECG 12 lead ECG [ECG] Stat Y 08/04/17 11:40 Completed EV carotid duplex imaging BI Routine Y 08/04/17 10:00 Completed EV echocardiogram Routine Y 08/05/17 10:55 Completed Date of admission: 08/03/17 22:16 Primary care physician: Jennifer Diaz Consults: 08/04/17 06:46 Consult to Neurology [CONS] Routine Consulting Provider: [facility] Reason for Consult: altered mental status Call Completed: No 08/04/17 10:25 Consult to Occupational Therapy [CONS] Routine Comment: Evaluate, develop and implement POC Reason for Consult: stroke Consult to Physical Therapy [CONS] Routine Comment: Evaluate, develop and implement POC Reason for Consult: stroke Consult to Speech Therapy [CONS] Routine Comment: Evaluate, develop and implement POC Reason for Consult: stroke Call Completed: No 08/06/17 12:57 Consult to Log Loader Helper [CONS] Routine Reason for SW Consult: placement 08/06/17 14:43 Consult to Log Loader Helper [CONS] Stat Reason for SW Consult: pt will need placement for rehab dx cva. from [place] Discharging clinician: Arthur Vyas Anticipated date of discharge: 08/07/17 - Patient Status Disposition: Transfer Inpatient Rehab Fac Condition: Fair Functional capacity at discharge: uses cane/walker Overall status at discharge: patient is progressing back to baseline - Discharge Instructions Follow Up With: Jennifer Diaz MD [Primary Care Provider] - Abimael Alvarez MD [Partnered Physician] - 08/16/17 8:15 am (hospital f/u stroke) - Diet and Activity Activity: ambulate only with your walker, as per physical therapy, increase activity as tolerated Diet: low fat, low cholesterol, low salt diet Hospital course: Mr. Lofton is a 76 year old male presented with cc of confusion which was noticed by his . Patient was combative, agitated on admission requiring Haldol and Ativan. He was alert and oriented to self only. Patient did not have any facial drooping, unilateral weakness, unilateral numbness, slurred speech. Patient has a history of atrial fibrillation and noncompliance with Xaralto Head CT was negative for any acute abnormalities. MRI showed findings of multiple punctate areas of infarct and bilateral cerebellar and cerebral hemispheres concerning for acute embolic infarcts. On day of admission patient also had a fever, tachycardia. There is concern for meningitis and patient was put on acyclovir overnight. Furthermore patient started having wheezing, productive cough, sputum. Chest x-ray showed evidence of infiltrates. Patient was at risk aspiration pneumonia and started on. Next morning patient Patient aggressive behavior resolved and he was alert and oriented to self but not place or time. Neurology recommended that patient most likely has infectious etiology of his confusion and acyclovir was discontinued. Patient did not require any supplemental oxygen but he did have rhonchi and rales on the left lower lobe. This morning patient's mental status has improved and he is alert to self, place , time, situation. His history status has improved as well where his productive sputum has resolved and his lung exam has decreased rhonchi and rales. Physical therapy recommended patient go to rehabilitation Center for strengthening. Patient is pending placement at this point. He is able to tolerate his diet and ready for discharge. New medications patient will be on: Plavix. He will complete 1 more day of redness on therapy. He will require 2 more days of Levaquin. He will also be discharged on melatonin to help him sleep. His digoxin dose has been decreased in half to 0.0625 mg daily. He will also be discharged with when necessary DuoNeb's. Patient will continue his Xaarlto and metoprolol. Follow-up with PCP and neurology outpatient. - Time Spent with Patient Total time spent providing and/or coordinating discharge services: - Constitutional Vitals: Temp Pulse Resp BP Pulse Ox 97.4 F L 69 17 162/98 96 08/07/17 07:06 08/07/17 07:06 08/07/17 07:06 08/07/17 07:06 08/07/17 07:06 General appearance: Present: A&O X 0, A&O X 3 - Head Head exam: Present: atraumatic, normocephalic - Eye Eye exam: Present: PERRL, conjuntiva pink, sclera anicteric Pupils: Present: PERRL - Neck Neck exam general surgery: Present: supple, trachea midline. Absent: lymphadenopathy - Respiratory Respiratory exam: Present: rales, rhonchi, wheezes. Absent: accessory muscle use Additional comments: LLL - Cardiovascular Cardiovascular exam: Present: irregular rhythm. Absent: diastolic murmur, gallop, rubs, systolic murmur - GI/Abdominal GI/Abdominal exam: Present: normal bowel sounds, soft, no peritoneal signs. Absent: distended, tenderness - Extremities Exam Extremities exam: Present: warm, radial pulses palpable and symmetrical. Absent : calf tenderness, cyanotic, pedal edema - Neurological Exam Neurological exam: Present: CN II-XII intact, oriented X3, no focal deficits. 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 Priority: Primary Status: Acute (3) Cerebrovascular accident (CVA) due to bilateral embolism of middle cerebral arteries Priority: Primary Status: Acute (4) Atrial fibrillation Status: Chronic Qualifiers: Atrial fibrillation type: chronic Qualified Code(s): I48.2 - Chronic atrial fibrillation (5) Hypertension Priority: Secondary Status: Chronic Qualifiers: Hypertension type: essential hypertension Qualified Code(s): I10 - Essential (primary) hypertension (6) Pneumonia Status: Suspected Qualifiers: Pneumonia type: due to Pneumococcus Laterality: left Lung location: lower lobe of lung Qualified Code(s): J13 - Pneumonia due to Streptococcus pneumoniae Procedures/tests Complete & Pending: Procedures Performed prior 72 hours Category Date Time Status CT chest wo con [CT] Routine Cat Scan 08/05/17 10:00 Completed MR cervical spine wo con [MR] Routine MRI 08/07/17 14:22 Ordered EV echocardiogram Routine Y 08/05/17 10:55 Completed Date of admission: 08/03/17 22:16 Primary care physician: Jennifer Diaz Consults: 08/04/17 06:46 Consult to Neurology [CONS] Routine Consulting Provider: [facility] Reason for Consult: altered mental status Call Completed: No 08/04/17 10:25 Consult to Occupational Therapy [CONS] Routine Comment: Evaluate, develop and implement POC Reason for Consult: stroke Consult to Physical Therapy [CONS] Routine Comment: Evaluate, develop and implement POC Reason for Consult: stroke Consult to Speech Therapy [CONS] Routine Comment: Evaluate, develop and implement POC Reason for Consult: stroke Call Completed: No 08/06/17 12:57 Consult to Log Loader Helper [CONS] Routine Reason for SW Consult: placement 08/06/17 14:43 Consult to Log Loader Helper [CONS] Stat Reason for SW Consult: pt will need placement for rehab dx cva. from [facility] course: Mr. Lofton is a 76 year old male - Time Spent with Patient Total time spent providing and/or coordinating discharge services: 41min - Constitutional Vitals: Temp Pulse Resp BP Pulse Ox 97.8 F 77 12 91/68 96 08/07/17 10:18 08/07/17 10:18 08/07/17 10:18 08/07/17 10:18 08/07/17 10:18 - Attending Attestation I examined this patient and my medical decision-making was reviewed with the Resident Physician on 08/07/17. I agree with the documented findings, disposition and treatment plan as described except to the extent set forth below. Mr Lofton has been admitted for acute encephalopathy related to bilateral CVAs and probable pneumonia. He has had steady improvement each day. He is now afebrile with stable vitals. Sitter has been discontinued. He is ready for d/ c to SNF Exam Alert. Comfortable Heart irreg Lungs clear at this time Less confusion noted today No edema Plan D/C to SNF when arranged Continue meds as ordered now. Expect continued clinical improvement. Blood cx positive appears to be contaminant.
--- NOTE | 2017-08-07 08:28 | Physician Discharge Referral ---
ExtendedCare Referral Info Provider in Charge: Dr. Flores Provider in Charge after Transfer: PCP Institutional Level of Care: Intermediate - Diagnosis (1) Acute encephalopathy Priority: Primary Status: Acute (2) CVA (cerebral vascular accident) Priority: Secondary Status: Acute (3) Atrial fibrillation Priority: Secondary Status: Chronic (4) Elevated troponin Priority: Secondary Status: Acute (5) Pneumonia Priority: Secondary Status: Suspected (6) Goals of care, counseling/discussion Priority: Secondary Status: Acute - Transfer Medications Prescriptions: Levofloxacin [Levaquin] 500 mg PO DAILY #2 tablet predniSONE [PredniSONE] 40 mg PO DAILY #1 tablet Home Medications: Albuterol Sulfate [Ventolin Hfa] 1 puff IH PRN PRN 08/03/17 [History] Fluticasone/Salmeterol [Advair Hfa 45-21 Mcg Inhaler] 12 gm IH PRN PRN 08/03/17 [History] Loratadine [Claritin] 10 mg PO DAILY 08/03/17 [History] Lovastatin [Altoprev] 40 mg PO DAILY 08/03/17 [History] Montelukast [Singulair] 10 mg PO DAILY 08/03/17 [History] Metoprolol Succinate 100 mg PO DAILY 08/05/17 [History] Clopidogrel [Plavix] 75 mg PO DAILY tablet 08/07/17 [Rx] Digoxin [Lanoxin] 0.0625 mg PO DAILY tablet 08/07/17 [Rx] Ipratropium/Albuterol Neb [Duoneb] 3 ml IH [id number] PRN #0 inhsol 08/07/17 [Rx] Levofloxacin [Levaquin] 500 mg PO DAILY #2 tablet 08/07/17 [Rx] Melatonin 9 mg PO HS tablet 08/07/17 [Rx] Rivaroxaban [Xarelto] 20 mg PO 1700 tablet 08/07/17 [Rx] predniSONE [PredniSONE] 40 mg PO DAILY #1 tablet 08/07/17 [Rx] Allergies/Adverse Reactions: 3 Allergy/AdvReac Type Severity Reaction Status Date / Time aspirin [ASA] Allergy Rash Verified 08/05/17 10:34 - Respiratory Orders None Smoking Cessation: Smoking cessation has been advised. For more information, call the [facility] [employer] Quit Line at 0-141-YTVP-NOW. - Advance Directives Code Status: Full Code - Mobility Orders Other (walker) - Rehabiliation Orders Rehab Orders: ROM Exercises, Evaluation for Physical Therapy, Evaluation for Occupational Therapy, Evaluation for Speech Therapy - Diet Orders Cardiac CERTIFICATION: I certify that the transfer of the above named patient to an Extended Care Facility is necessary for the continuing treatment of the diagnosis listed. The above information is true and accurate reflection of patient's current condition. Confidential - Redisclosure prohibited without a patient's written consent.
[2017-08-07] MEDS: Levofloxacin 750 MG/150 ML 750 MG/150 ML BAG IVPB SCH (08:54)
[2017-08-07] MEDS: Metoprolol XL (24 HR) Succ 50 MG TAB.ER.24H PO SCH (08:54)
[2017-08-07] MEDS: *HR* Digoxin 0.125 MG TABLET PO SCH (08:55)
[2017-08-07] MEDS: Thiamine (B-1) 100 MG TABLET PO SCH (08:56)
[2017-08-07] MEDS: predniSONE 20 MG TABLET PO SCH (08:56)
[2017-08-07] MEDS: Acetaminophen 325 MG TABLET PO PRN ×2 (13:53→21:07)
[2017-08-07] MEDS: *HR* Rivaroxaban 10 MG TABLET PO SCH (18:03)
[2017-08-07] MEDS: Melatonin 3 MG TABLET PO SCH (21:07)
[2017-08-08 07:34] VITALS: BP 163/109
[2017-08-08] MEDS: Budesonide/Formoterol 80/4.5 MDI IH SCH (08:05)
[2017-08-08] MEDS ORDERED: levoFLOXacin 750 MG TABLET PO SCH (09:00)
[2017-08-08] MEDS: Metoprolol XL (24 HR) Succ 50 MG TAB.ER.24H PO SCH (09:03)
[2017-08-08] MEDS: predniSONE 20 MG TABLET PO SCH (09:03)
[2017-08-08] MEDS: *HR* Digoxin 0.125 MG TABLET PO SCH (09:04)
[2017-08-08] MEDS: Thiamine (B-1) 100 MG TABLET PO SCH (09:04)
[2017-08-08] MEDS: Acetaminophen 325 MG TABLET PO PRN (12:03)
--- NOTE | 2017-08-08 15:04 | Internal Med Progress Note ---
<Arthur Vyas - Last Filed: 08/08/17 15:05> Date of Encounter: 08/08/17 Time of Encounter: 15:02 - Assessment and plan (1) Acute encephalopathy Status: Resolved Assessment and plan: 2nd to embolic stroke Initially patient was aggressive, agitated, alert but not oriented to self, place or time. Currently alert and oriented 3. He does not have any aggressive. Patient's memory is progressively coming back. (2) CVA (cerebral vascular accident) Status: Acute Assessment and plan: MRI shows muultiple areas of acute infarcts likley from embolic stroke patient will be started on plavix as they cannot take aspirin. continue statin patient alert and oriented to self only Qualifiers: CVA mechanism: embolism Precerebral and cerebral artery: unspecified cerebral artery Qualified Code(s): I63.40 - Cerebral infarction due to embolism of unspecified cerebral artery (3) Atrial fibrillation Status: Chronic Assessment and plan: Controlled. Continue metoprolol and Xarelto. Continue digoxin. Qualifiers: Atrial fibrillation type: chronic Qualified Code(s): I48.2 - Chronic atrial fibrillation (4) Elevated troponin Status: Acute Assessment and plan: 2nd to stroke EKG afib with no ischemic changes patient denies chest pain Hemodynamically stable. (5) Pneumonia Status: Suspected Assessment and plan: Likely secondary to aspiration pneumonia Not requiring O2 supplementation Left lower lobe crackles, rhonchi, diminished breath sounds Continue Levaquin Qualifiers: Pneumonia type: due to Pneumococcus Laterality: left Lung location: lower lobe of lung Qualified Code(s): J13 - Pneumonia due to Streptococcus pneumoniae (6) Goals of care, counseling/discussion Status: Acute Assessment and plan: Prefer sitting bed today. Patient will be discharged today. - Subjective Interval history: Alert oriented 3. Patient awaiting placement. Denies dizziness, blurry vision , numbness, tingling, weakness, chest pain, abdominal pain, shortness of breath. - Constitutional Vitals: Temp Pulse Resp BP Pulse Ox 98.3 F 72 17 163/109 97 08/08/17 07:00 08/08/17 07:00 08/08/17 08:07 08/08/17 07:00 08/08/17 09:00 General appearance: Present: A&O X 0, A&O X 3 - Head Head exam: Present: atraumatic, normocephalic - Eye Eye exam: Present: PERRL, conjuntiva pink, sclera anicteric - Neck Neck exam general surgery: Present: supple, trachea midline. Absent: lymphadenopathy - Respiratory Respiratory exam: Present: CTAB. Absent: accessory muscle use, rales, rhonchi, wheezes - Cardiovascular Cardiovascular exam: Present: RRR, +S1, +S2. Absent: diastolic murmur, gallop, rubs, systolic murmur - GI/Abdominal GI/Abdominal exam: Present: normal bowel sounds, soft, no peritoneal signs. Absent: distended, tenderness - Extremities Exam Extremities exam: Present: warm, radial pulses palpable and symmetrical. Absent : calf tenderness, cyanotic, pedal edema - Neurological Exam Neurological exam: Present: CN II-XII intact, oriented X3, no focal deficits. Absent: pronater drift, facial droop, speech deficit - Skin Skin exam: Present: dry, intact Internal Medicine: Result - Labs CBC & Chem 7: 08/07/17 03:39 08/06/17 04:18 - ABG Interpretation ABG results: PT/INR, D-dimer PT 13.1 Seconds (9.4-12.1) H 08/04/17 10:43 - Impressions Impressions Cervical Spine MRI 08/07/17 14:22 IMPRESSION: 1. Multilevel degenerative changes of cervical spine, predominantly involving facet disease and uncovertebral hypertrophy, as detailed above. 2. Spinal canal stenosis is worst at C3-C4, with multiple additional levels of neural foraminal stenosis, as detailed above. 3. No abnormal cord signal abnormality. The spinal cord is normal in caliber and size. D/ / Yeyo Cannon / Yeyo Cannon Interpreting Provider: Yeyo Cannon Consult Discharge Plan - Plan Instructions: Prednisone (By mouth), Levofloxacin (By mouth), Atrial Fibrillation (DC), Ischemic Stroke (DC), Ischemic Stroke (GEN), Chronic Hypertension (DC) Referrals: Jennifer Diaz MD [Primary Care Provider] - Abmiael Alvarez MD [Partnered Physician] - 08/16/17 8:15 am (hospital f/u stroke) Prescriptions: Levofloxacin [Levaquin] 500 mg PO DAILY #2 tablet <Garrison Flores - Last Filed: 08/08/17 22:02> Date of Encounter: 08/08/17 - Assessment and plan (1) Cerebrovascular accident (CVA) due to bilateral embolism of cerebellar arteries Status: Acute (2) Cerebrovascular accident (CVA) due to bilateral embolism of middle cerebral arteries Status: Acute (3) Atrial fibrillation Status: Chronic Qualifiers: Atrial fibrillation type: chronic Qualified Code(s): I48.2 - Chronic atrial fibrillation (4) Hypertension Status: Chronic Qualifiers: Hypertension type: essential hypertension Qualified Code(s): I10 - Essential (primary) hypertension (5) Pneumonia Status: Suspected Qualifiers: Pneumonia type: due to Pneumococcus Laterality: left Lung location: lower lobe of lung Qualified Code(s): J13 - Pneumonia due to Streptococcus pneumoniae (6) Acute metabolic encephalopathy Status: Resolved - Constitutional Vitals: Temp Pulse Resp BP Pulse Ox 98.3 F 72 17 163/109 97 08/08/17 07:00 08/08/17 07:00 08/08/17 08:07 08/08/17 07:00 08/08/17 09:00 Internal Medicine: Result - Labs CBC & Chem 7: 08/07/17 03:39 08/06/17 04:18 - ABG Interpretation ABG results: PT/INR, D-dimer PT 13.1 Seconds (9.4-12.1) H 08/04/17 10:43 - Attending Attestation I examined this patient and my medical decision-making was reviewed with the Resident Physician on 08/08/17. I agree with the documented findings, disposition and treatment plan as described except to the extent set forth below. Mr. Lofton is currently admitted for acute bilateral CVAs. He remains moderate risk at this time. Mr. Lofton is continuing to slowly improve. He has been approved for rehab. No fever or chills. Exam alert. Comfortable Heart irreg Lungs clear I/P 1. Bilateral CVA 2 a fib D/C to SNF today.
[2017-08-08] MEDS: *HR* Rivaroxaban 10 MG TABLET PO SCH (18:10)
== END 2017-08-08 18:08 | DRG 64 ==
LOC: 3BNU → SUATTDRO 22:16 → 3BNU 08-04 02:18 → 2NENU 08-04 16:41
PROVIDERS: ADMIT Internal Medicine; ATTEND Internal Medicine

== ENCOUNTER 2020-10-17 22:36 | Observation (INO) ==
[2020-10-17] MEDS ORDERED: Isovue-370 500 ML BOTTLE IVP ONE (22:55)
[2020-10-17 23:28] LABS: Basophils % 0.2 %; Eosinophils % 0.2 %; Hemoglobin 14.2 g/dL (12.9-16.9); Immature Granulocytes % 0.5 % (0-4); Lymphocytes # 0.7 K/mcL (0.6-4.6); Lymphocytes % 3.9 %; Mean Corpuscular HGB Conc 31.6 g/dL (31.6-35.5); Mean Corpuscular Hemoglobin 30.4 pg (28.0-33.3); Mean Corpuscular Volume 96.4 fL (83.0-100.0); Mean Platelet Volume 10.9 fL (9.4-12.4); Monocytes # 1.2 K/mcL (0.0-1.3); Monocytes % 6.9 %; Neutrophils # 15.3 K/mcL (1.6-8.9); Platelet Count 264 K/mcL (140-400); Red Blood Count 4.67 M/mcL (4.19-5.50); Segmented Neutrophils % 88.3 %
[2020-10-17 23:31] LABS: White Blood Count 17.3 K/mcL (4.3-11.1)
[2020-10-17 23:41] LABS: BUN/Creatinine Ratio 19 (6-26); Blood Urea Nitrogen 20 mg/dL (8-23); Calcium 8.9 mg/dL (8.6-10.3); Carbon Dioxide 26 mEq/L (23-29); Chloride 106 mEq/L (98-107); Glucose 119 mg/dL (70-105); Osmolality,Calculated 296 (280-300); Potassium 3.8 mEq/L (3.5-5.1); Sodium 141 mEq/L (136-145); eGFR For African Americans > 60 (> 60); eGFR For Non-African Americans > 60 (> 60)
[2020-10-17 23:47] LABS: Troponin I 0.04 ng/mL (< 0.04)
[2020-10-18 00:45] LABS: Adenovirus Not Detected (Not Detect); Bordetella Pertussis Not Detected (Not Detect); Chlamydophila pneumoniae Not Detected (Not Detect); Coronavirus 229E Not Detected (Not Detect); Coronavirus HKU1 Not Detected (Not Detect); Coronavirus NL63 Not Detected (Not Detect); Coronavirus OC43 Not Detected (Not Detect); Human Metapneumovirus Not Detected (Not Detect); Human Rhinovirus/Enterovirus Not Detected (Not Detect); Influenza A Subtype 2009 H1 Not Detected (Not Detect); Influenza B Not Detected (Not Detect); Mycoplasma pneumoniae Not Detected (Not Detect); Parainfluenza Virus 1 Not Detected (Not Detect); Parainfluenza Virus 2 Not Detected (Not Detect); Parainfluenza Virus 3 Not Detected (Not Detect); Parainfluenza Virus 4 Not Detected (Not Detect); Respiratory Syncytial Virus Not Detected (Not Detect); SARS-CoV-2 Not Detected (Not Detect)
[2020-10-18] MEDS ORDERED: cefTRIAXone 1,000 MG in 0.9 % Sodium Chloride Mini Bag 100 ML IVPB ONE (01:29)
[2020-10-18] MEDS ORDERED: Azithromycin 500 MG in 0.9 % Sodium Chloride 250 ML IVPB ONE (01:29)
[2020-10-18] MEDS ORDERED: dexAMETHasone 4 MG TABLET PO STA (01:30)
[2020-10-18] MEDS ORDERED: Naloxone 0.4 MG/ML INJ IVP PRN (02:47)
[2020-10-18] MEDS ORDERED: Acetaminophen 325 MG TABLET PO PRN (02:47)
[2020-10-18] MEDS ORDERED: Ondansetron 4 MG/2 ML VIAL IVP PRN (02:47)
[2020-10-18 08:23] LABS: Hematocrit 42.6 % (37.5-50.1)
[2020-10-18 08:25] LABS: Hemoglobin 13.6 g/dL (12.9-16.9); Mean Corpuscular HGB Conc 31.9 g/dL (31.6-35.5); Mean Platelet Volume 10.8 fL (9.4-12.4); Platelet Count 199 K/mcL (140-400); Red Blood Count 4.39 M/mcL (4.19-5.50); White Blood Count 24.3 K/mcL (4.3-11.1)
[2020-10-18 08:38] LABS: Prothrombin Time 22.3 Seconds (9.4-12.1)
[2020-10-18 08:40] LABS: Activated Partial Thrombo Time 32.7 Seconds (26.0-36.0)
[2020-10-18 08:45] LABS: Alanine Aminotransferase 22 Units/L (7-52); Albumin 4.1 g/dL (3.5-5.7); Albumin/Globulin Ratio 1.5 (1.1-2.2); Alkaline Phosphatase 74 Units/L (34-104); Aspartate Amino Transferase 18 Units/L (13-39); BUN/Creatinine Ratio 16 (6-26); Bilirubin,Total 1.1 mg/dL (0.3-1.0); Blood Urea Nitrogen 17 mg/dL (8-23); Calcium 9.1 mg/dL (8.6-10.3); Carbon Dioxide 26 mEq/L (23-29); Chloride 107 mEq/L (98-107); Creatine Kinase 58 Units/L (30-223); Globulin 2.8 g/dL (2.4-3.5); Glucose 134 mg/dL (70-105); Lactate Dehydrogenase 183 Units/L (140-271); Osmolality,Calculated 294 (280-300); Potassium 3.9 mEq/L (3.5-5.1); Sodium 140 mEq/L (136-145); Total Protein 6.9 g/dL (6.4-8.9); eGFR For African Americans > 60 (> 60); eGFR For Non-African Americans > 60 (> 60)
[2020-10-18 08:49] LABS: C-Reactive Protein 68 mg/L (Less than 10)
[2020-10-18 09:02] LABS: Ferritin 52 ng/mL (20-250)
[2020-10-18 10:19] LABS: Monocytes # 1.5 K/mcL (0.0-1.3); Neutrophils # 22.8 K/mcL (1.6-8.9)
[2020-10-18 10:22] LABS: Reactive Lymphocytes Present (Not Present); Toxic Granulation Present (Not Present)
[2020-10-18 10:23] LABS: Platelet Estimate Normal (Normal)
[2020-10-18] MEDS ORDERED: Ipratropium/Albuterol Neb 3 ML IH PRN (10:24)
[2020-10-18] MEDS ORDERED: Ipratropium 1 PUFF INHALER IH PRN (11:19)
[2020-10-18] MEDS: Ipratropium 1 PUFF INHALER IH SCH ×3 (15:35→21:51)
[2020-10-18] MEDS ORDERED: Ipratropium/Albuterol Neb 3 ML IH SCH (16:00)
[2020-10-18] MEDS: *HR* Rivaroxaban 10 MG TABLET PO SCH (17:36)
[2020-10-19] MEDS: Ipratropium 1 PUFF INHALER IH SCH ×4 (03:03→21:42)
[2020-10-19] MEDS ORDERED: *HR* Labetalol 20 MG/4 ML SYRINGE IVP PRN (03:12)
[2020-10-19] MEDS ORDERED: Azithromycin 500 MG in D5% in Water 250 ML IVPB SCH (06:00)
[2020-10-19 07:32] LABS: Hematocrit 39.4 % (37.5-50.1); Hemoglobin 12.5 g/dL (12.9-16.9); Mean Corpuscular HGB Conc 31.7 g/dL (31.6-35.5); Mean Corpuscular Hemoglobin 30.8 pg (28.0-33.3); Mean Platelet Volume 11.2 fL (9.4-12.4); Platelet Count 192 K/mcL (140-400); Red Blood Count 4.06 M/mcL (4.19-5.50); White Blood Count 13.6 K/mcL (4.3-11.1)
[2020-10-19 07:40] LABS: BUN/Creatinine Ratio 22 (6-26); Blood Urea Nitrogen 20 mg/dL (8-23); Calcium 8.9 mg/dL (8.6-10.3); Carbon Dioxide 24 mEq/L (23-29); Chloride 106 mEq/L (98-107); Glucose 136 mg/dL (70-105); Osmolality,Calculated 291 (280-300); Potassium 3.4 mEq/L (3.5-5.1); Sodium 138 mEq/L (136-145); eGFR For African Americans > 60 (> 60); eGFR For Non-African Americans > 60 (> 60)
[2020-10-19] MEDS ORDERED: Metoprolol XL (24 HR) Succ 50 MG TAB.ER.24H PO SCH (09:00)
[2020-10-19] MEDS ORDERED: *HR* Digoxin 0.125 MG TABLET PO SCH (09:00)
[2020-10-19] MEDS ORDERED: Dexamethasone 4 MG/ML VIAL IVP SCH (09:00)
[2020-10-19] MEDS ORDERED: cefTRIAXone 1,000 MG in Water for inj. (sterile) 10 ML IVP SCH (09:00)
[2020-10-19] MEDS ORDERED: predniSONE 20 MG TABLET PO SCH (09:00)
[2020-10-19 14:32] VITALS: BP 158/93
[2020-10-19] MEDS: *HR* Rivaroxaban 10 MG TABLET PO SCH (16:27)
== END 2020-10-19 22:15 ==
LOC: CDU 22:36 → EMEROOARM 22:36 → SUATTDRO 10-18 02:30 → CDU 10-18 03:47
PROVIDERS: ADMIT Family Medicine; ATTEND Pharmacist